=== PATIENT | female | born 1955 | race Caucasian/White ===

== ENCOUNTER 2024-06-13 14:19 | Inpatient (IN) | payer MEDICARE, OTHER ==
[~2024-06-13] VITALS: Ht 157.5 cm; Wt 74.4 kg
[2024-06-13 14:50] LABS: BASOPHILS % (AUTO) 0.2 % (0.0-2.0); HEMATOCRIT 30 % (33-45); HEMOGLOBIN 9.3 g/dL (11.5-14.8); LYMPHOCYTES # (AUTO) 0.5 K/uL (0.8-4.8); LYMPHOCYTES % (AUTO) 2.8 % (20.0-44.0); MEAN CORPUSCULAR HEMOGLOBIN 25 PG (26.0-33.0); MEAN CORPUSCULAR HGB CONC 31 g/dl (31.0-36.0); MEAN CORPUSCULAR VOLUME 80 fL (82-100); MONOCYTES # (AUTO) 0.6 K/uL (0.1-1.30); MONOCYTES % (AUTO) 3.4 % (2.0-12.0); NEUTROPHILS # (AUTO) 17.2 K/uL (1.8-8.9); NEUTROPHILS % (AUTO) 93.6 % (43.0-81.0); PLATELET COUNT (AUTO) 358 K/uL (150-450); RED BLOOD CELL COUNT(AUTO) 3.77 MIL/uL (4.0-5.2); RED CELL DISTRIBUTION WIDTH 18.2 % (11.5-15.0); WHITE BLOOD COUNT (AUTO) 18.4 K/uL (4.3-11.0)
[2024-06-13] MEDS: IV NS 0.9% 1,000 ML BAG IV ONE (14:50)
[2024-06-13] MEDS ORDERED: ACETAMINOPHEN ES 500 MG TABLET ONE (14:57)
[2024-06-13] MEDS: ACETAMINOPHEN ES 500 MG TABLET PO ONE (15:00)
[2024-06-13 15:03] LABS: INR 1.52 (0.91-1.10); PARTIAL THROMBOPLASTIN TIME 35.3 SEC (24.3-34.3); PROTHROMBIN TIME 15.7 SECS (9.2-11.1)
[2024-06-13 15:05] LABS: ALANINE AMINOTRANSFERASE 16 U/L (12-78); ALBUMIN 1.7 g/dL (3.4-5.0); ALKALINE PHOSPHATASE 191 U/L (46-116); ASPARTATE AMINOTRANSFERASE 52 U/L (15-37); BILIRUBIN,DIRECT 0.4 mg/dL (0.0-0.2); BILIRUBIN,TOTAL 0.6 mg/dL (0.2-1.0); CALCIUM, SERUM 8.5 mg/dL (8.5-10.1); CARBON DIOXIDE 18 mmol/L (21-32); CHLORIDE 98 mmol/L (98-107); CREATININE 1.3 mg/dL (0.6-1.3); GLUCOSE 65 mg/dL (74-106); POTASSIUM 3.3 mmol/L (3.5-5.1); SODIUM SERUM 133 mmol/L (136-145); TOTAL PROTEIN, SERUM 8.1 g/dL (6.4-8.2); UREA NITROGEN, BLOOD 21 mg/dL (7-18)
[2024-06-13] MEDS: CEFEPIME 1 GM in IV D5W 50 ML IV ONE (15:05)
[2024-06-13 15:11] LABS: LACTIC ACID 1.8 mmol/L (0.4-2.0)
[2024-06-13 15:23] LABS: BAND % (MANUAL) 2 % (0.0-5.0); LYMPHOCYTES % (MANUAL) 1 % (16-48); MONOCYTES % (MANUAL) 3 % (0-11.0); NEUTROPHILS % (MANUAL) 94 (42-76)
[2024-06-13 15:24] LABS: PLATELET ESTIMATE ADEQUATE
[2024-06-13 15:25] LABS: ANISOCYTOSIS 1+
[2024-06-13] MEDS ORDERED: CYAN100096 PO (15:27)
[2024-06-13] MEDS ORDERED: SUCR1TAB PO (15:27)
[2024-06-13] MEDS ORDERED: OXYC5TAB3 PO (15:27)
[2024-06-13] MEDS ORDERED: ERGO500040 PO (15:27)
[2024-06-13] MEDS ORDERED: HONE44PA TP (15:27)
[2024-06-13] MEDS ORDERED: SENN8.6T19 PO (15:27)
[2024-06-13] MEDS ORDERED: ARIP2TAB19 PO (15:27)
[2024-06-13] MEDS ORDERED: LACO100T2 PO (15:27)
[2024-06-13] MEDS ORDERED: ZINC220C6 PO (15:27)
[2024-06-13] MEDS ORDERED: ACET-637 PO (15:27)
[2024-06-13] MEDS ORDERED: ASCO500T10 PO (15:27)
[2024-06-13] MEDS ORDERED: LEVE500T20 PO (15:27)
[2024-06-13] MEDS ORDERED: NALO4SPR NS (15:27)
[2024-06-13] MEDS ORDERED: MULT-213 PO (15:27)
[2024-06-13] MEDS ORDERED: SERT100T12 PO (15:27)
[2024-06-13] MEDS ORDERED: PANT40TA49 PO (15:27)
[2024-06-13] MEDS ORDERED: AMIN30LI2 PO (15:27)
[2024-06-13] MEDS ORDERED: MELA3TAB41 PO (15:27)
[2024-06-13] MEDS ORDERED: SODI473S9 TP (15:27)
[2024-06-13] MEDS: VANCOMYCIN 1 GM in IV D5W 250 ML IV ONE (15:35)
[2024-06-13 17:00] VITALS: BP 100/69; TEMP 97.7; O2SAT 97
[2024-06-13] MEDS ORDERED: ONDANSETRON HCL/PF 4 MG/2 ML VIAL IVP PRN (18:00)
[2024-06-13] MEDS ORDERED: hydrALAZINE HCL IV 20 MG VIAL IV PRN (18:00)
[2024-06-13] MEDS: IV NS 0.9% 1,000 ML IV SCH (18:12)
[2024-06-13 18:34] LABS: IRON, SERUM 6 ug/dl (50-175); TOTAL IRON BINDING CAPACITY 207 ug/dl (250-450)
[2024-06-13 18:48] LABS: FERRITIN 229 ng/mL (8-388)
[2024-06-13] MEDS: VANCOMYCIN 500 MG in IV D5W 100 ML IV ONE (19:01)
[2024-06-13] MEDS: oxyCODONE IR immediate release 5 MG TABLET PO PRN (19:01)
[2024-06-13 20:00] VITALS: BP 106/71; TEMP 97.9; O2SAT 97
[2024-06-13] MEDS: CEFEPIME 2 GM in IV D5W 100 ML IV SCH (21:10)
[2024-06-13] MEDS: LEVETIRACETAM (250 MG) 250 MG TABLET PO SCH (21:11)
[2024-06-13] MEDS: SUCRALFATE 1 G TABLET PO SCH (21:12)
[2024-06-13] MEDS: LACOSAMIDE 50 MG TABLET PO SCH (21:12)
[2024-06-13] MEDS: HEPARIN SODIUM, PORCINE 5000 UNITS/1 ML VIAL SQ SCH (21:13)
[2024-06-14] VITALS: BP 108/73; TEMP 98.1; O2SAT 99
[2024-06-14] MEDS: ACETAMINOPHEN 325 MG TABLET PO PRN (02:27)
[2024-06-14 04:00] VITALS: BP 110/75; TEMP 98; O2SAT 98
[2024-06-14 08:00] VITALS: BP 126/58; TEMP 98.7; O2SAT 96
[2024-06-14] MEDS: PANTOPRAZOLE 40 MG TABLET.DR PO SCH (08:11)
[2024-06-14] MEDS: POLYETHYLENE GLYCOL 3350 17 GM POWD.PACK PO SCH (08:47)
[2024-06-14] MEDS: SERTRALINE HCL 50 MG TABLET PO SCH (08:48)
[2024-06-14] MEDS: DOCUSATE SODIUM LIQ 100 MG/10 ML UDC PO SCH (08:48)
[2024-06-14] MEDS: ARIPIPRAZOLE 2 MG TABLET PO SCH (08:48)
[2024-06-14 10:18] LABS: BASOPHILS # (AUTO) 0.1 K/uL (0.0-0.2); BASOPHILS % (AUTO) 0.3 % (0.0-2.0); EOSINOPHILS % (AUTO) 0.1 % (0.0-6.0); HEMATOCRIT 29 % (33-45); HEMOGLOBIN 8.4 g/dL (11.5-14.8); LYMPHOCYTES # (AUTO) 0.9 K/uL (0.8-4.8); LYMPHOCYTES % (AUTO) 4.9 % (20.0-44.0); MEAN CORPUSCULAR HEMOGLOBIN 25 PG (26.0-33.0); MEAN CORPUSCULAR HGB CONC 29 g/dl (31.0-36.0); MEAN CORPUSCULAR VOLUME 86 fL (82-100); MONOCYTES % (AUTO) 5.3 % (2.0-12.0); NEUTROPHILS # (AUTO) 16.3 K/uL (1.8-8.9); NEUTROPHILS % (AUTO) 89.4 % (43.0-81.0); PLATELET COUNT (AUTO) 288 K/uL (150-450); RED BLOOD CELL COUNT(AUTO) 3.35 MIL/uL (4.0-5.2); RED CELL DISTRIBUTION WIDTH 19.1 % (11.5-15.0); WHITE BLOOD COUNT (AUTO) 18.3 K/uL (4.3-11.0)
[2024-06-14 10:34] LABS: BILIRUBIN,TOTAL 0.4 mg/dL (0.2-1.0); CREATININE 0.9 mg/dL (0.6-1.3); MAGNESIUM 2.2 mg/dL (1.8-2.4); POTASSIUM 3.1 mmol/L (3.5-5.1); TOTAL PROTEIN, SERUM 6.9 g/dL (6.4-8.2)
[2024-06-14 10:41] LABS: ALBUMIN 1.4 g/dL (3.4-5.0)
[2024-06-14 12:00] VITALS: BP 100/54; TEMP 97.8; O2SAT 99
[2024-06-14] MEDS: MENTHOL/CETYLPYRD (CEPACOL) 1 LOZ LOZENGE PO PRN (12:46)
[2024-06-14 16:00] VITALS: BP 128/61; TEMP 97.8; O2SAT 99
[2024-06-14 16:15] LABS: APPEARANCE,URINE CLEAR (CLEAR); BILIRUBIN,URINE NEGATIVE (NEGATIVE); BLOOD, URINE 1+ Ery/uL (NEGATIVE); COLOR,URINE YELLOW (YELLOW); KETONES,URINE NEGATIVE (NEGATIVE); LEUKOCYTE ESTERASE ,URINE TRACE (NEGATIVE); NITRITE, URINE NEGATIVE (NEGATIVE); PROTEIN,URINE TRACE mg/dl (NEGATIVE); UGLUCOSE NEGATIVE (NEGATIVE); UROBILINOGEN,URINE 0.2 EU/dL (0.2)
[2024-06-14 16:27] LABS: ADD URINE CULTURE YES; BACTERIA,URINE 1+ /HPF (None Seen); YEAST,URINE Rare /HPF (None Seen)
[2024-06-14] MEDS ORDERED: VANCOMYCIN HCL 1.25 GM in IV D5W 250 ML IV SCH (17:00)
[2024-06-14] MEDS: VANCOMYCIN 750 MG in IV D5W 250 ML IV SCH (17:03)
[2024-06-14] MEDS ORDERED: VANCOMYCIN 1 GM in IV D5W 250 ML IV SCH (18:00)
[2024-06-14] MEDS: POTASSIUM CHLORIDE 20 MEQ TAB.PRT.SR PO SCH (18:45)
[2024-06-14 20:00] VITALS: BP 112/66; TEMP 98.1; O2SAT 98
[2024-06-15] VITALS: BP 94/56; TEMP 97.9; O2SAT 98
[2024-06-15 04:00] VITALS: BP 117/59; TEMP 98.1; O2SAT 96
[2024-06-15] MEDS: IV NS 0.9% 1,000 ML IV PRN (04:24)
[2024-06-15 04:29] LABS: EOSINOPHILS # (AUTO) 0.1 K/uL (0.0-0.7); EOSINOPHILS % (AUTO) 0.6 % (0.0-6.0); HEMATOCRIT 26 % (33-45); HEMOGLOBIN 7.8 g/dL (11.5-14.8); LYMPHOCYTES # (AUTO) 1.1 K/uL (0.8-4.8); LYMPHOCYTES % (AUTO) 5.6 % (20.0-44.0); MEAN CORPUSCULAR HEMOGLOBIN 24 PG (26.0-33.0); MEAN CORPUSCULAR HGB CONC 30 g/dl (31.0-36.0); MEAN CORPUSCULAR VOLUME 81 fL (82-100); MONOCYTES # (AUTO) 0.6 K/uL (0.1-1.30); MONOCYTES % (AUTO) 3.1 % (2.0-12.0); NEUTROPHILS # (AUTO) 17.4 K/uL (1.8-8.9); NEUTROPHILS % (AUTO) 90.7 % (43.0-81.0); PLATELET COUNT (AUTO) 300 K/uL (150-450); RED BLOOD CELL COUNT(AUTO) 3.18 MIL/uL (4.0-5.2); RED CELL DISTRIBUTION WIDTH 18.8 % (11.5-15.0); WHITE BLOOD COUNT (AUTO) 19.2 K/uL (4.3-11.0)
[2024-06-15 04:53] LABS: CREATININE 0.8 mg/dL (0.6-1.3); MAGNESIUM 2.1 mg/dL (1.8-2.4); PHOSPHORUS 2.6 mg/dL (2.5-4.9); POTASSIUM 3.3 mmol/L (3.5-5.1)
[2024-06-15 06:22] LABS: THYROID STIMULATING HORMONE 2.44 uIU/mL (0.358-3.74)
[2024-06-15 08:00] VITALS: BP 109/62; TEMP 98.1; O2SAT 98
[2024-06-15] MEDS: DAKINS QUARTER STRENGTH (0.125%) 480 ML BOTTLE TOP SCH (10:54)
[2024-06-15] MEDS: POTASSIUM CHLORIDE 20 MEQ TAB.PRT.SR PO SCH (11:08)
[2024-06-15 12:00] VITALS: BP 126/71; TEMP 98.1; O2SAT 98
[2024-06-15 12:47] LABS: HIV-1 p24 ANTIGEN NON REACTIVE (NONREACTIVE); HIV-1/2 ANTIBODY NON REACTIVE (NONREACTIVE)
[2024-06-15 16:00] VITALS: BP 109/53; TEMP 98.1; O2SAT 98
[2024-06-15] MEDS: SODIUM BICARBONATE 650 MG TABLET PO SCH (16:28)
[2024-06-15 20:00] VITALS: BP 106/57; TEMP 97.5; O2SAT 93
[2024-06-16] VITALS: BP 106/57; TEMP 97.5; O2SAT 93
[2024-06-16 04:00] VITALS: BP 112/60; TEMP 97.4; O2SAT 98
[2024-06-16 09:19] LABS: BASOPHILS % (AUTO) 0.2 % (0.0-2.0); EOSINOPHILS # (AUTO) 0.1 K/uL (0.0-0.7); EOSINOPHILS % (AUTO) 0.8 % (0.0-6.0); HEMATOCRIT 25 % (33-45); HEMOGLOBIN 7.6 g/dL (11.5-14.8); LYMPHOCYTES # (AUTO) 1.1 K/uL (0.8-4.8); LYMPHOCYTES % (AUTO) 7.7 % (20.0-44.0); MEAN CORPUSCULAR HEMOGLOBIN 25 PG (26.0-33.0); MEAN CORPUSCULAR HGB CONC 30 g/dl (31.0-36.0); MEAN CORPUSCULAR VOLUME 81 fL (82-100); MONOCYTES # (AUTO) 0.6 K/uL (0.1-1.30); MONOCYTES % (AUTO) 4.3 % (2.0-12.0); PLATELET COUNT (AUTO) 350 K/uL (150-450); RED CELL DISTRIBUTION WIDTH 18.9 % (11.5-15.0); WHITE BLOOD COUNT (AUTO) 13.8 K/uL (4.3-11.0)
[2024-06-16 09:37] LABS: CALCIUM, SERUM 8.2 mg/dL (8.5-10.1); CREATININE 0.9 mg/dL (0.6-1.3)
[2024-06-16 09:48] LABS: POTASSIUM 2.7 mmol/L (3.5-5.1)
[2024-06-16] MEDS: POTASSIUM CHLORIDE 20 MEQ TAB.PRT.SR PO SCH (11:16)
[2024-06-16] MEDS: METRONIDAZOLE 500 MG TABLET PO SCH (11:16)
[2024-06-16 16:00] VITALS: BP 116/52; TEMP 97.6; O2SAT 99
[2024-06-16] MEDS: SILVER NITRATE APPLICATOR 1 EA BOX TP ONE (17:00)
[2024-06-16 20:00] VITALS: BP 113/55; TEMP 98
[2024-06-16] MEDS: MUPIROCIN OINT 2% 22 GM TUBE NS SCH (20:42)
[2024-06-17] VITALS: BP 118/54; TEMP 98.5; O2SAT 99
[2024-06-17 08:00] VITALS: BP 120/63; TEMP 98.1; O2SAT 99
[2024-06-17 12:30] LABS: BASOPHILS # (AUTO) 0.1 K/uL (0.0-0.2); BASOPHILS % (AUTO) 0.5 % (0.0-2.0); EOSINOPHILS # (AUTO) 0.2 K/uL (0.0-0.7); HEMATOCRIT 29 % (33-45); HEMOGLOBIN 8.4 g/dL (11.5-14.8); LYMPHOCYTES # (AUTO) 1.3 K/uL (0.8-4.8); LYMPHOCYTES % (AUTO) 11.9 % (20.0-44.0); MEAN CORPUSCULAR HEMOGLOBIN 26 PG (26.0-33.0); MEAN CORPUSCULAR HGB CONC 29 g/dl (31.0-36.0); MEAN CORPUSCULAR VOLUME 88 fL (82-100); MONOCYTES # (AUTO) 0.5 K/uL (0.1-1.30); MONOCYTES % (AUTO) 4.4 % (2.0-12.0); NEUTROPHILS # (AUTO) 8.8 K/uL (1.8-8.9); NEUTROPHILS % (AUTO) 81.2 % (43.0-81.0); PLATELET COUNT (AUTO) 404 K/uL (150-450); RED BLOOD CELL COUNT(AUTO) 3.31 MIL/uL (4.0-5.2); RED CELL DISTRIBUTION WIDTH 19.4 % (11.5-15.0); WHITE BLOOD COUNT (AUTO) 10.8 K/uL (4.3-11.0)
[2024-06-17 12:31] LABS: CALCIUM, SERUM 8.2 mg/dL (8.5-10.1); CREATININE 0.8 mg/dL (0.6-1.3); POTASSIUM 3.4 mmol/L (3.5-5.1)
[2024-06-17 16:00] VITALS: BP 116/75; TEMP 97.5; O2SAT 98
[2024-06-17] MEDS: POTASSIUM CHLORIDE 10 MEQ TABLET.SA PO ONE (17:28)
[2024-06-18] VITALS: BP 115/77; TEMP 97.8; O2SAT 99
[2024-06-18] MEDS: VANCOMYCIN 1 GM in IV D5W 250ml IV SCH (05:13)
[2024-06-18 08:00] VITALS: BP 144/73; TEMP 97.3; O2SAT 95
[2024-06-18 16:00] VITALS: BP 126/65; TEMP 97.2; O2SAT 97
[2024-06-18 16:34] LABS: BASOPHILS % (AUTO) 0.3 % (0.0-2.0); EOSINOPHILS # (AUTO) 0.3 K/uL (0.0-0.7); EOSINOPHILS % (AUTO) 2.9 % (0.0-6.0); HEMATOCRIT 24 % (33-45); HEMOGLOBIN 7.4 g/dL (11.5-14.8); LYMPHOCYTES # (AUTO) 1.5 K/uL (0.8-4.8); LYMPHOCYTES % (AUTO) 15.9 % (20.0-44.0); MEAN CORPUSCULAR HEMOGLOBIN 25 PG (26.0-33.0); MEAN CORPUSCULAR HGB CONC 31 g/dl (31.0-36.0); MEAN CORPUSCULAR VOLUME 81 fL (82-100); MONOCYTES # (AUTO) 0.5 K/uL (0.1-1.30); MONOCYTES % (AUTO) 5.1 % (2.0-12.0); NEUTROPHILS # (AUTO) 7.1 K/uL (1.8-8.9); NEUTROPHILS % (AUTO) 75.8 % (43.0-81.0); PLATELET COUNT (AUTO) 397 K/uL (150-450); RED BLOOD CELL COUNT(AUTO) 2.92 MIL/uL (4.0-5.2); RED CELL DISTRIBUTION WIDTH 19.1 % (11.5-15.0); WHITE BLOOD COUNT (AUTO) 9.4 K/uL (4.3-11.0)
[2024-06-18 16:47] LABS: CALCIUM, SERUM 7.8 mg/dL (8.5-10.1); CREATININE 0.7 mg/dL (0.6-1.3); POTASSIUM 2.9 mmol/L (3.5-5.1)
[2024-06-18] MEDS: ARGININE/GLUTAMINE/CALCIUM BMB 1 EACH POWD.PACK PO SCH (16:51)
[2024-06-18] MEDS: POTASSIUM CHLORIDE 20 MEQ TAB.PRT.SR PO ONE (18:17)
[2024-06-19 05:02] VITALS: BP 123/61; TEMP 97.7; O2SAT 99
[2024-06-19] MEDS: CEFTRIAXONE 2 G in IV D5W 100 ML IV SCH (08:35)
[2024-06-19 08:54] VITALS: BP 108/75; TEMP 97.5; O2SAT 98
[2024-06-19 16:13] VITALS: BP 115/63; TEMP 97.3; O2SAT 95
[2024-06-19 17:41] LABS: CALCIUM, SERUM 7.8 mg/dL (8.5-10.1); CREATININE 0.9 mg/dL (0.6-1.3); POTASSIUM 3.2 mmol/L (3.5-5.1)
[2024-06-19] MEDS: POTASSIUM CHLORIDE 20 MEQ TAB.PRT.SR PO ONE (18:11)
[2024-06-20] VITALS: BP 120/65; TEMP 98.1; O2SAT 98
[2024-06-20 04:21] LABS: BASOPHILS % (AUTO) 0.3 % (0.0-2.0); EOSINOPHILS # (AUTO) 0.2 K/uL (0.0-0.7); EOSINOPHILS % (AUTO) 2.9 % (0.0-6.0); HEMATOCRIT 24 % (33-45); HEMOGLOBIN 7.6 g/dL (11.5-14.8); LYMPHOCYTES # (AUTO) 1.4 K/uL (0.8-4.8); LYMPHOCYTES % (AUTO) 17.4 % (20.0-44.0); MEAN CORPUSCULAR HEMOGLOBIN 26 PG (26.0-33.0); MEAN CORPUSCULAR HGB CONC 31 g/dl (31.0-36.0); MEAN CORPUSCULAR VOLUME 82 fL (82-100); MONOCYTES # (AUTO) 0.4 K/uL (0.1-1.30); MONOCYTES % (AUTO) 4.9 % (2.0-12.0); NEUTROPHILS # (AUTO) 6.1 K/uL (1.8-8.9); NEUTROPHILS % (AUTO) 74.5 % (43.0-81.0); PLATELET COUNT (AUTO) 400 K/uL (150-450); RED BLOOD CELL COUNT(AUTO) 2.95 MIL/uL (4.0-5.2); RED CELL DISTRIBUTION WIDTH 18.9 % (11.5-15.0); WHITE BLOOD COUNT (AUTO) 8.2 K/uL (4.3-11.0)
[2024-06-20 04:30] LABS: CALCIUM, SERUM 8.1 mg/dL (8.5-10.1); CREATININE 0.9 mg/dL (0.6-1.3); MAGNESIUM 2.3 mg/dL (1.8-2.4); POTASSIUM 3.8 mmol/L (3.5-5.1)
[2024-06-20 05:51] LABS: ANISOCYTOSIS 1+; EOSINOPHILS % (MANUAL) 4 % (0-4); LYMPHOCYTES % (MANUAL) 18 % (16-48); MONOCYTES % (MANUAL) 5 % (0-11.0); NEUTROPHILS % (MANUAL) 73 (42-76); PLATELET ESTIMATE ADEQUATE
[2024-06-20 08:00] VITALS: BP 121/66; TEMP 98.2; O2SAT 95; O2SAT 97
[2024-06-20] MEDS: PANTOPRAZOLE 40 MG VIAL IV SCH (08:55)
[2024-06-20] MEDS ORDERED: METR500T PO (13:20)
[2024-06-20] MEDS ORDERED: NUTR1PAC14 PO (13:20)
[2024-06-20] MEDS ORDERED: SODI650T PO (13:20)
[2024-06-20] MEDS ORDERED: SODI473S8 TOP (13:20)
[2024-06-20] MEDS ORDERED: CEFT2FRO2 IV (13:20)
[2024-06-20] MEDS ORDERED: POLY17PO29 PO (13:20)
[2024-06-20] MEDS ORDERED: ACET325T53 PO (13:20)
[2024-06-20] MEDS ORDERED: MUPI22OI7 NS (13:20)
[2024-06-20] MEDS ORDERED: DOXY100T2 PO (13:23)
[2024-06-20] MEDS: SOD FERRIC GLUC 125 MG in IV NS 0.9% 100 ML IV SCH (14:55)
[2024-06-20 17:00] VITALS: BP 124/73; TEMP 98.1; O2SAT 98
[2024-06-20] MEDS ORDERED: VANCOMYCIN 750 MG in IV D5W 250 ML IV SCH (20:00)
== END 2024-06-20 17:32 | DRG 871 ==
LOC: ER 14:23 → TELE1 16:48 → MEDSG1 06-16 10:50
PROVIDERS: ADMIT Internal Medicine; ATTEND Nurse Practitioner Acute Care
DX: A41.9 Sepsis, unspecified organism (principal); E43 Unspecified severe protein-calorie malnutrition; J15.69 Pneumonia due to other Gram-negative bacteria; R53.2 Functional quadriplegia; E87.1 Hypo-osmolality and hyponatremia; N39.0 Urinary tract infection, site not specified; E87.20 Acidosis, unspecified; M86.8X8 Other osteomyelitis, other site; L03.115 Cellulitis of right lower limb; E87.6 Hypokalemia; G40.909 Epilepsy, unspecified, not intractable, without status epilepticus; L89.319 Pressure ulcer of right buttock, unspecified stage; R65.20 Severe sepsis without septic shock; D50.9 Iron deficiency anemia, unspecified; I10 Essential (primary) hypertension; M89.8X9 Other specified disorders of bone, unspecified site; Z87.11 Personal history of peptic ulcer disease; Z93.3 Colostomy status; Z90.6 Acquired absence of other parts of urinary tract; Z66 Do not resuscitate; Z90.49 Acquired absence of other specified parts of digestive tract; Z93.6 Other artificial openings of urinary tract status; Z20.822 Contact with and (suspected) exposure to COVID-19; E88.09 Other disorders of plasma-protein metabolism, not elsewhere classified; E86.9 Volume depletion, unspecified; E11.69 Type 2 diabetes mellitus with other specified complication; Z22.322 Carrier or suspected carrier of Methicillin resistant Staphylococcus aureus; Q05.9 Spina bifida, unspecified; B96.89 Other specified bacterial agents as the cause of diseases classified elsewhere
CPT/HCPCS: 36415; 71045-TC; 72195-TC; 73130-TC; 80048-TC; 80053-TC; 80076-TC; 80202-TC; 81001; 82728-TC; 83540-TC; 83605-TC; 83735-TC; 83935-TC; 84100-TC; 84300-TC; 84443-TC; 84484-TC; 84550-TC; 85025-TC; 85652-TC; 85730-TC; 86140-TC; 86803; 87040-TC; 87081-TC; 87086-TC; 87186-TC; 87806; A4223; A6253; A6403; G0378; J0692; J0696; J1644; J2470; J2916; J3370; J3371; J7030; J7040; J7060